=== PATIENT | male | born 1980 | race Hispanic/Latino ===

== ENCOUNTER 2020-05-07 13:46 | Inpatient (IN) | payer SELFPAY ==
[~2020-05-07] VITALS: Ht 160 cm; Wt 59.0 kg
[2020-05-07] MEDS ORDERED: CEFTRIAXONE SODIUM 2 GM VIAL ONE (14:15)
[2020-05-07] MEDS ORDERED: TETANUS/DIPHTHERIA TOXOID [ADULT] 0.5 ML VIAL IM ONE (14:16)
[2020-05-07] MEDS ORDERED: SODIUM CHLORIDE 0.9% 100 ML IV ONE (14:17)
[2020-05-07 14:19] LABS: BASOPHILS % (AUTO) 0.7 % (0.0-5.0); EOSINOPHILS % (AUTO) 0.8 % (0.0-8.0); HEMATOCRIT 43.5 % (42-54); LYMPHOCYTES % (AUTO) 10.5 % (21.0-51.0); MEAN CORPUSCULAR HEMOGLOBIN 31.7 pg (27.0-33.0); MEAN CORPUSCULAR HGB CONC 34.9 g/dL (32.0-36.0); MEAN CORPUSCULAR VOLUME 90.8 fL (79-99); MONOCYTES % (AUTO) 5.7 % (3.0-13.0); NEUTROPHILS % (AUTO) 81.7 % (40.0-77.0); PLATELET COUNT (AUTO) 491 K/uL (130-400); RED BLOOD CELL COUNT(AUTO) 4.79 MIL/uL (4.50-6.20); WHITE BLOOD COUNT (AUTO) 15.3 K/uL (4.8-10.8)
[2020-05-07 14:31] LABS: CREATININE 0.9 mg/dL (0.5-1.5); POTASSIUM 3.1 mmol/L (3.5-5.1)
[2020-05-07 14:35] LABS: ALBUMIN 3.1 g/dL (3.5-5.0); BILIRUBIN,TOTAL 0.1 mg/dL (0.2-1.0); TOTAL PROTEIN, SERUM 8.1 g/dL (6.0-8.3)
[2020-05-07] MEDS ORDERED: ACETAMINOPHEN 325 MG TAB PO PRN (15:30)
[2020-05-07] MEDS ORDERED: VANCOMYCIN PROTOCOL PER PHARMACY IV SCH (15:30)
[2020-05-07] MEDS ORDERED: ONDANSETRON HCL 4 MG/2 ML VIAL IVP PRN (15:30)
[2020-05-07] MEDS: SODIUM CHLORIDE 0.9% 1000ML 1,000 ML IV SCH ×2 (15:30→23:06)
[2020-05-07] MEDS: ZOSYN 3.375GM+NS 50ML 50 ML IV SCH ×2 (15:30→23:06)
[2020-05-07] MEDS ORDERED: COMPOUND IV REFRIGERATED 1 EACH IVSOLN MISC PRN (16:00)
[2020-05-07] MEDS ORDERED: HYDROCODONE/ACETAMINOPHEN 5/325 MG TAB ONE (16:00)
[2020-05-07] MEDS ORDERED: ZOSYN 3.375GM+NS 50ML 50 ML IV ONE (16:37)
[2020-05-07] MEDS ORDERED: POTASSIUM CHLORIDE 20 MEQ ERTAB PO PRN (17:00)
[2020-05-07] MEDS ORDERED: POTASSIUM CHLORIDE 20MEQ/100ML 100 ML IV PRN (17:00)
[2020-05-07] MEDS ORDERED: LIDOCAINE HCL-MPF 1% 2ML VIAL IV PRN (17:00)
[2020-05-07] MEDS ORDERED: PHARMACY COMMUNICATION MISC PRN (17:00)
[2020-05-07] MEDS ORDERED: POTASSIUM CHLORIDE 10% ELIXIR 20 MEQ/15 ML UDCUP PO PRN (17:00)
[2020-05-07] MEDS ORDERED: CHLORDIAZEPOXIDE HCL 25 MG CAP PO PRN (17:00)
[2020-05-07] MEDS ORDERED: LORAZEPAM 2 MG/ML 1 ML VIAL IVP PRN (17:00)
[2020-05-07] MEDS ORDERED: POTASSIUM CHLORIDE 10% ELIXIR 20 MEQ/15 ML UDCUP ONE (17:30)
[2020-05-07] MEDS: VANCOMYCIN 1.5 GM in SODIUM CHLORIDE 0.9% 250 ML IV ONE ×2 (17:31→17:52)
[2020-05-07 18:03] VITALS: BP 139/86
[2020-05-07] MEDS: MORPHINE SULFATE 2 MG/ML 1ML SYG IVP PRN (19:11)
[2020-05-07 19:37] VITALS: BP 135/75
--- NOTE | 2020-05-07 20:00 | NUR ---
assessment and teaching patient awake, alert, ox3, no sob, c/o pain, see pain assessment and treatment, teach patient plan of care, pain management and expected outcome, patient verbalizes understanding via teach back
[2020-05-07] MEDS ORDERED: KETOROLAC TROMETHAMINE 15MG/ML ONE (22:20)
[2020-05-07] MEDS ORDERED: VANCOMYCIN 1GM+NS 250ML 250 ML IV ONE (22:30)
--- NOTE | 2020-05-07 23:00 | NUR ---
consent consent signed for surgery tomorrow, npo post 0400 am , patient verbalizes understanding via teach back
[2020-05-07] MEDS: VANCOMYCIN 1GM+NS 250ML 250 ML IV SCH (23:06)
[2020-05-08] VITALS (21 sets, daily range): BP systolic 117–189; BP diastolic 60–104
[2020-05-08] MEDS: MORPHINE SULFATE 2 MG/ML 1ML SYG IVP PRN ×2 (01:10→09:26)
[2020-05-08] MEDS: HYDROCODONE/ACETAMINOPHEN 5/325 MG TAB PO PRN ×2 (02:11→17:19)
[2020-05-08 04:00] LABS: BASOPHILS % (AUTO) 0.7 % (0.0-5.0); HEMATOCRIT 41.6 % (42-54); MEAN CORPUSCULAR HEMOGLOBIN 31.3 pg (27.0-33.0); MEAN CORPUSCULAR HGB CONC 33.4 g/dL (32.0-36.0); MEAN CORPUSCULAR VOLUME 93.7 fL (79-99); MONOCYTES % (AUTO) 7.8 % (3.0-13.0); NEUTROPHILS % (AUTO) 73.9 % (40.0-77.0); PLATELET COUNT (AUTO) 466 K/uL (130-400); RED BLOOD CELL COUNT(AUTO) 4.44 MIL/uL (4.50-6.20); RED CELL DISTRIBUTION WIDTH 13.2 % (11.0-15.5); WHITE BLOOD COUNT (AUTO) 14.7 K/uL (4.8-10.8)
[2020-05-08 04:19] LABS: ALBUMIN 2.6 g/dL (3.5-5.0); BILIRUBIN,TOTAL 0.2 mg/dL (0.2-1.0); CREATININE 0.8 mg/dL (0.5-1.5); INR 0.92 (0.85-1.15); PARTIAL THROMBOPLASTIN TIME 28.2 SEC (26.3-35.5); TOTAL PROTEIN, SERUM 7.1 g/dL (6.0-8.3)
[2020-05-08 05:17] LABS: AMPHET/METH SCREEN,URINE NEGATIVE (NEGATIVE); BARBITURATE SCREEN, URINE NEGATIVE (NEGATIVE); BENZODIAZEPINES SCREEN,URINE NEGATIVE (NEGATIVE); CANNABINOID SCREEN,URINE NEGATIVE (NEGATIVE); COCAINE SCREEN,URINE POSITIVE (NEGATIVE); OPIATE SCREEN,URINE NEGATIVE (NEGATIVE); PHENCYCLIDINE SCREEN,URINE NEGATIVE (NEGATIVE)
[2020-05-08] MEDS: ZOSYN 3.375GM+NS 50ML 50 ML IV SCH ×3 (06:19→22:57)
[2020-05-08] MEDS: VANCOMYCIN 1GM+NS 250ML 250 ML IV SCH (09:15)
[2020-05-08] MEDS: SODIUM CHLORIDE 0.9% 1000ML 1,000 ML IV SCH ×2 (11:30→22:56)
--- NOTE | 2020-05-08 11:35 | NUR ---
DCP CM met with pt discussed dc plans. Pt is independent prior to admission, verbalized he has a house in [place] that family lives in, but he currently lives on the streets wherever he feels like staying. Denies any equipments/services. Pt verbalized he used to go to [facility] before, but not when he was incarcerated. Pt verbalized he was [facility] just [facility] ago. Pt verbalized family members including his brother Jorge Maguire offered for him to stay with them but he refused. He wants to be left alone and does not want to bother other people. Pt informed of community resources, [employer] and fishes, [employer]. Pt verbalized he doesn't want to go to any of those places. Asked patient where does he spend the night. Pt verbalized, "oh on the streets wherever I feel like it, sometimes at friends, they'll offer me food." I get by on my own. Asked patients how does he get from one place to another. Patient verbalized, "I walk, sometimes I ask friends for ride, my brother sometimes too." Asked patient who will take him home once he's ready to DC. Patient verbalized, "I can walker, or call my friends/brother also will be able to help me." Informed patient of [employer] that goes in front of the hospital every hour 5min after until around 5-6pm daily. Pt verbalized, "don't worry I have friends that I can also call. I will have someone pick me up. Also I can go back to my family if I want to." Elio w/patient, currently no insurance at this time, Puneet goncalves/Cresencio assisting patient. EVELIN pickering ordered for ETOH abuse and homeless. DC plan to home wherever patient wishes to stay with. CM to continue to follow up. Addendum: 05/08/20 at 1145 by KADI VALENTIN LVN CM Amended: Links added.
[2020-05-08] MEDS ORDERED: PROPOFOL 10 MG/ML 20ML VIAL IV ONE (12:21)
[2020-05-08] MEDS ORDERED: MIDAZOLAM HCL 1 MG/ML 2ML VIAL ONE (12:21)
[2020-05-08] MEDS ORDERED: LIDOCAINE PF 2% 5ML ABBOJECT ONE (12:21)
[2020-05-08] MEDS ORDERED: NEOMY SULF/POLYMYXIN B SULFATE 1 ML AMPUL IR ONE (12:32)
[2020-05-08] MEDS ORDERED: BUPIVACAINE/PF 0.25% 30ML VIAL IJ ONE (12:46)
[2020-05-08] MEDS ORDERED: LIDOCAINE HCL 1% 20 ML VIAL ONE (12:46)
[2020-05-08] MEDS ORDERED: MEPERIDINE-PF 25 MG/ML SYG ONE (13:31)
--- NOTE | 2020-05-08 13:55 | NUR ---
received pt back from surgery pacu, he denies pain at this time, only stating hes starving to ; will restart his diet. dressing to right thumb cdi. he is freely moving hand and it is warm to touch.
[2020-05-08] MEDS: VANCOMYCIN 1.25 GM in SODIUM CHLORIDE 0.9% 250 ML IV SCH (17:16)
[2020-05-09] VITALS (7 sets, daily range): BP systolic 113–126; BP diastolic 70–81
[2020-05-09] MEDS: VANCOMYCIN 1.25 GM in SODIUM CHLORIDE 0.9% 250 ML IV SCH ×4 (01:32→23:05)
[2020-05-09] MEDS: HYDROCODONE/ACETAMINOPHEN 5/325 MG TAB PO PRN ×4 (02:40→23:12)
[2020-05-09] MEDS: ZOSYN 3.375GM+NS 50ML 50 ML IV SCH ×2 (05:53→15:55)
[2020-05-09] MEDS: SODIUM CHLORIDE 0.9% 1000ML 1,000 ML IV SCH ×2 (05:53→23:12)
[2020-05-09] MEDS ORDERED: DIPH,PERTUSS(ACELL),TET VAC/PF 0.5 ML VIAL IM SCH (11:30)
--- NOTE | 2020-05-09 19:50 | NUR ---
PM Assessment Received pt sited at the edge of the bed, requesting to take a shower. Routine assessment done, plan of care discuss, aware plan for another surgery for Monday. Pt allowed to take a shower but reminded to be extra careful not to wet his dressing to the right hand & once in bed to keep it elevated on a pillow, agreed.
[2020-05-10] MEDS: ZOSYN 3.375GM+NS 50ML 50 ML IV SCH ×3 (02:45→18:29)
[2020-05-10] MEDS: HYDROCODONE/ACETAMINOPHEN 5/325 MG TAB PO PRN ×4 (03:21→20:32)
[2020-05-10] MEDS: SODIUM CHLORIDE 0.9% 1000ML 1,000 ML IV SCH ×3 (03:30→20:33)
[2020-05-10 04:00] VITALS: BP 117/72
[2020-05-10 08:00] VITALS: BP 120/76
[2020-05-10] MEDS: VANCOMYCIN 1.25 GM in SODIUM CHLORIDE 0.9% 250 ML IV SCH ×2 (08:48→16:21)
[2020-05-10 12:00] VITALS: BP 122/73
[2020-05-10 16:00] VITALS: BP 116/61
[2020-05-10 19:00] VITALS: BP 116/66
--- NOTE | 2020-05-10 22:27 | NUR ---
MD Dr JOHNS came to see pt.
[2020-05-10 23:00] VITALS: BP 117/72
[2020-05-10] MEDS ORDERED: LACTULOSE 20 GM/30 ML UDCUP PO PRN (23:15)
[2020-05-11] MEDS: VANCOMYCIN 1.25 GM in SODIUM CHLORIDE 0.9% 250 ML IV SCH ×3 (00:10→17:18)
[2020-05-11] MEDS: HYDROCODONE/ACETAMINOPHEN 5/325 MG TAB PO PRN ×4 (00:45→22:43)
[2020-05-11] MEDS: ZOSYN 3.375GM+NS 50ML 50 ML IV SCH (03:30)
--- NOTE | 2020-05-11 04:08 | NUR ---
STATUS Pt kept NPO after 399 for surgery today.
[2020-05-11 04:17] VITALS: BP 115/63
[2020-05-11 08:03] VITALS: BP 110/59
[2020-05-11] MEDS: MORPHINE SULFATE 2 MG/ML 1ML SYG IVP PRN (08:10)
[2020-05-11 11:21] VITALS: BP 111/65
[2020-05-11] MEDS: KETOROLAC TROMETHAMINE 15MG/ML IV PRN (13:49)
[2020-05-11 16:44] VITALS: BP 103/48
[2020-05-11] MEDS: SODIUM CHLORIDE 0.9% 1000ML 1,000 ML IV SCH ×2 (17:56→19:30)
[2020-05-11 20:00] VITALS: BP 116/62
[2020-05-11] MEDS: VANCOMYCIN 1GM+NS 250ML 250 ML IV SCH (21:17)
--- NOTE | 2020-05-11 21:17 | NUR ---
VANCO Received with Vancomycin still infusing.
[2020-05-11 23:27] VITALS: BP 122/72
[2020-05-12] VITALS (9 sets, daily range): BP systolic 116–155; BP diastolic 73–99
[2020-05-12] MEDS: SODIUM CHLORIDE 0.9% 1000ML 1,000 ML IV SCH (00:32)
[2020-05-12] MEDS: VANCOMYCIN 1GM+NS 250ML 250 ML IV SCH ×2 (00:33→05:53)
--- NOTE | 2020-05-12 03:17 | NUR ---
PAIN Pt states he is in pain but he wants Hydrocodone,he refused Morphine.Explained he's Npo after midnight.He states,"You're the only one who does not want to let me eat until 0400.I told him the order was not Npo after 0400 today.He said he will not take Morphine now and will just go back to sleep.
--- NOTE | 2020-05-12 04:15 | NUR ---
ASLSAMANTHA Asleep this time. Addendum: 05/12/20 at 0415 by DUDLEY TOLEDO RN RN Amended: Links added.
[2020-05-12] MEDS: MORPHINE SULFATE 2 MG/ML 1ML SYG IVP PRN (05:24)
[2020-05-12 05:59] LABS: BASOPHILS % (AUTO) 1.3 % (0.0-5.0); EOSINOPHILS % (AUTO) 2.5 % (0.0-8.0); HEMATOCRIT 41.6 % (42-54); LYMPHOCYTES % (AUTO) 25.7 % (21.0-51.0); MEAN CORPUSCULAR HEMOGLOBIN 30.7 pg (27.0-33.0); MEAN CORPUSCULAR HGB CONC 32.7 g/dL (32.0-36.0); MEAN CORPUSCULAR VOLUME 93.9 fL (79-99); MONOCYTES % (AUTO) 7.4 % (3.0-13.0); NEUTROPHILS % (AUTO) 62.3 % (40.0-77.0); PLATELET COUNT (AUTO) 476 K/uL (130-400); RED BLOOD CELL COUNT(AUTO) 4.43 MIL/uL (4.50-6.20); RED CELL DISTRIBUTION WIDTH 12.9 % (11.0-15.5); WHITE BLOOD COUNT (AUTO) 8.3 K/uL (4.8-10.8)
[2020-05-12 06:19] LABS: ALANINE AMINOTRANSFERASE 75 U/L (12-78); ALBUMIN 2.8 g/dL (3.5-5.0); ASPARTATE AMINOTRANSFERASE 49 U/L (10-37); BILIRUBIN,TOTAL 0.2 mg/dL (0.2-1.0); CARBON DIOXIDE 31 mmol/L (21-32); CHLORIDE 106 mmol/L (101-111); GLUCOSE,RANDOM 93 mg/dL (70-105); POTASSIUM 4.3 mmol/L (3.5-5.1); SODIUM SERUM 140 mmol/L (136-145); TOTAL PROTEIN, SERUM 7.1 g/dL (6.0-8.3); UREA NITROGEN, BLOOD 9 mg/dL (7-18)
[2020-05-12 06:45] LABS: CREATININE 0.9 mg/dL (0.5-1.5); GLOMERULAR FILTR. RATE CALC 101 mL/min (>60)
[2020-05-12] MEDS ORDERED: LIDOCAINE PF 2% 5ML ABBOJECT ONE (09:45)
[2020-05-12] MEDS ORDERED: PROPOFOL 10 MG/ML 20ML VIAL IV ONE (09:45)
[2020-05-12] MEDS ORDERED: FENTANYL CITRATE PF 50 MCG/1 ML 2ML VIAL ONE (09:46)
[2020-05-12] MEDS ORDERED: LACTATED RINGERS 1000ML 1,000 ML IV ONE (10:08)
[2020-05-12] MEDS ORDERED: MIDAZOLAM HCL 1 MG/ML 2ML VIAL ONE (10:33)
[2020-05-12] MEDS ORDERED: LIDOCAINE HCL 1% 20 ML VIAL ONE (10:50)
[2020-05-12] MEDS: HYDROCODONE/ACETAMINOPHEN 5/325 MG TAB PO PRN (12:08)
[2020-05-12] MEDS ORDERED: DOXY100T2 PO (13:58)
[2020-05-12] MEDS ORDERED: IBUP-2077 PO (13:58)
[2020-05-12] MEDS: KETOROLAC TROMETHAMINE 15MG/ML IV PRN (14:51)
[2020-05-12] MEDS ORDERED: DOXYCYCLINE HYCLATE 100 MG TABLET PO SCH (21:00)
== END 2020-05-12 16:40 | disposition home or self-care (01) | DRG 516 ==
LOC: EDH 13:46 → EDHIP 13:47 → 3AH 17:45
PROVIDERS: ADMIT Hospitalist; ATTEND Hospitalist
PROC: 3E0234Z Introduction of Serum, Toxoid and Vaccine into Muscle, Percutaneous Approach (ICD-10-PCS; 2020-05-08)
PROC: 0PBR0ZZ Excision of Right Thumb Phalanx, Open Approach (ICD-10-PCS; principal; 2020-05-08 12:57)
DX: M86.141 Other acute osteomyelitis, right hand (principal); L02.511 Cutaneous abscess of right hand; E87.1 Hypo-osmolality and hyponatremia; I96 Gangrene, not elsewhere classified; L03.011 Cellulitis of right finger; E87.6 Hypokalemia; F17.210 Nicotine dependence, cigarettes, uncomplicated; G47.00 Insomnia, unspecified; K59.00 Constipation, unspecified; B95.62 Methicillin resistant Staphylococcus aureus infection as the cause of diseases classified elsewhere; F14.90 Cocaine use, unspecified, uncomplicated; Z59.0 Homelessness; Z23 Encounter for immunization
CPT/HCPCS: 36415; 73130; 80053; 80202; 80305; 83605; 84145; 85025; 85610; 85730; 86140; 87040; 87070; 87076; 87077; 87186; 87205; 90714; 90715; A4565; A6266; C1713; G0378; J0696; J1885; J2001; J2175; J2250; J2543; J2704; J3010; J3370; J3490; J7030; J7050; J7120